=== PATIENT | female | born 1990 | race Two or more races ===

== ENCOUNTER 2022-07-09 18:15 | Emergency (ER) | payer MEDICAID, OTHER ==
[~2022-07-09] VITALS: Ht 142.2 cm; Wt 54.0 kg
[2022-07-09 18:28] VITALS: BP 100/52
[2022-07-09 19:37] LABS: Urine Amorphous Crystal FEW /hpf (None Seen); Urine Bacteria NONE SEEN /hpf (None Seen); Urine Blood Negative /uL (Negative); Urine Mucus FEW (None Seen); Urine Specific Gravity 1.025 (1.001-1.035); Urine WBC 2 /hpf (0 - 5)
== END 2022-07-09 22:14 | disposition home or self-care (01) ==
LOC: ER 18:15
DX: N83.202 Unspecified ovarian cyst, left side (principal); F12.10 Cannabis abuse, uncomplicated; Z98.51 Tubal ligation status; Z32.02 Encounter for pregnancy test, result negative
CPT/HCPCS: 76856; 81001; 81025

== ENCOUNTER 2022-08-07 19:50 | Emergency (ER) | payer MEDICAID, OTHER ==
[~2022-08-07] VITALS: Ht 142.2 cm; Wt 53.1 kg
[2022-08-07 20:24] VITALS: BP 114/67
[2022-08-07] MEDS ORDERED: KETOROLAC TROMETH 60MG/2ML VIAL IM ONE (22:30)
[2022-08-07] MEDS ORDERED: AMOX500T3 PO (22:30)
[2022-08-07] MEDS ORDERED: cefTRIAXone SOD 1,000 MG VL IM ONE (22:30)
[2022-08-07] MEDS ORDERED: IBUP800T27 PO (22:48)
== END 2022-08-07 22:46 | disposition home or self-care (01) ==
LOC: ER 19:50
DX: J03.90 Acute tonsillitis, unspecified (principal); Z79.1 Long term (current) use of non-steroidal anti-inflammatories (NSAID); Z79.2 Long term (current) use of antibiotics
CPT/HCPCS: 87070; 87880; 96372; 99284; J0696; J1885